=== PATIENT | female | born 1985 ===

== ENCOUNTER 2020-09-09 08:25 | Emergency (ER) | payer SELFPAY ==
[~2020-09-09] VITALS: Ht 152.4 cm; Wt 77.3 kg
[2020-09-09 08:33] VITALS: TEMP 98
[2020-09-09 09:03] LABS: BASO % 0.3 % (0.0-2.0); EOS # 0.2 (0.0-0.7); EOS % 2.2 % (0-4.0); GRAN # 5.6 (1.4-6.5); HEMATOCRIT 38.1 % (37.0-47.0); LYMPH # 1.4 (1.2-3.4); LYMPH % 17.7 % (20.0-51.0); MEAN CELL VOLUME 89 fl (80.0-100.0); MEAN CORPUSCULAR HEMOGLOBIN 30 pg (27.0-31.0); MEAN CORPUSCULAR HGB CONC 34 g/dl (33.0-37.0); MEAN PLATELET VOLUME 10.3 fl (7.4-10.4); MONO # 0.5 (0.1-0.6); MONO % 6.4 % (1.7-9.3); PLATELET COUNT 203 K/mm3 (130-400); RED BLOOD COUNT 4.29 M/mm3 (4.10-5.30); REDCELL DISTRIBUTION WIDTH-CV 12.1 % (11.5-14.5)
[2020-09-09 09:13] LABS: ALBUMIN 3.8 gm/dL (3.5-5.0); BILIRUBIN,TOTAL 0.5 mg/dL (0.0-1.0); CALCIUM 8.7 mg/dL (8.4-10.2); CREATININE, serum 0.78 (0.52-1.25); POTASSIUM 3.4 mmol/L (3.4-5.0)
[2020-09-09 09:19] LABS: COLLECTION METHOD CLEAN CATCH
[2020-09-09 09:25] LABS: PH 8 (5-8); SQUAMOUS EPITHELIAL 0-2 /hpf; URINE APPEARANCE Clear; URINE BACTERIA None Seen /hpf; URINE BILIRUBIN Negative (NEGATIVE); URINE BLOOD Negative (NEGATIVE); URINE COLOR Straw; URINE GLUCOSE Negative (NEGATIVE); URINE KETONE Negative (NEGATIVE); URINE LEUKOCYTE ESTERASE Negative (NEGATIVE); URINE NITRATE Negative (NEGATIVE); URINE PROTEIN(semi-quant) Negative (NEGATIVE); URINE RBC 0-2 /hpf; URINE UROBILINOGEN Negative (NEGATIVE)
[2020-09-09] MEDS ORDERED: PEPCID 20MG TAB20 MG PO (10:28)
[2020-09-09 11:07] VITALS: BP 134/86; PULSE 59
[2020-09-10] MEDS ORDERED: NORCO 325 MG-51 TAB PO (11:02)
[2020-09-10] MEDS ORDERED: DOXYCYCLINE HY100 MG PO (11:02)
== END 2020-09-09 11:10 | disposition home or self-care (01) ==
LOC: COL.ER 08:25
PROVIDERS: Emergency Medicine
DX: R10.13 Epigastric pain (principal); R19.5 Other fecal abnormalities; R11.2 Nausea with vomiting, unspecified; M79.10 Myalgia, unspecified site; Z32.02 Encounter for pregnancy test, result negative; Z20.822 Contact with and (suspected) exposure to COVID-19
CPT/HCPCS: J7030

== ENCOUNTER 2020-09-09 19:30 | Observation (INO) | payer SELFPAY ==
[~2020-09-09] VITALS: Ht 162.6 cm; Wt 77.3 kg
[~2020-09-09 19:30] MED LIST: PEPCID 20MG TAB20 MG PO
[2020-09-09 20:37] LABS: BASO % 0.3 % (0.0-2.0); EOS # 0.1 (0.0-0.7); EOS % 1.3 % (0-4.0); GRAN # 5.6 (1.4-6.5); GRAN % 72.2 % (42.2-75.2); HEMATOCRIT 37.4 % (37.0-47.0); HEMOGLOBIN 12.8 g/dl (12.5-16.0); LYMPH # 1.6 (1.2-3.4); LYMPH % 20.2 % (20.0-51.0); MEAN CELL VOLUME 89 fl (80.0-100.0); MEAN CORPUSCULAR HEMOGLOBIN 30 pg (27.0-31.0); MEAN CORPUSCULAR HGB CONC 34 g/dl (33.0-37.0); MEAN PLATELET VOLUME 10.5 fl (7.4-10.4); MONO # 0.4 (0.1-0.6); MONO % 5.7 % (1.7-9.3); PLATELET COUNT 215 K/mm3 (130-400); RED BLOOD COUNT 4.22 M/mm3 (4.10-5.30); REDCELL DISTRIBUTION WIDTH-CV 11.9 % (11.5-14.5)
[2020-09-09 20:52] LABS: ALBUMIN 3.9 gm/dL (3.5-5.0); BILIRUBIN,TOTAL 0.5 mg/dL (0.0-1.0); CALCIUM 8.8 mg/dL (8.4-10.2); CREATININE, serum 0.83 (0.52-1.25); POTASSIUM 3.7 mmol/L (3.4-5.0); TOTAL PROTEIN 7.2 gm/dL (6.4-8.2)
[2020-09-10] VITALS (11 sets, daily range): BP systolic 105–129; BP diastolic 61–78; PULSE 54–75; TEMP 97.3–98.2
--- NOTE | 2020-09-10 01:40 | NUR ---
PAtient up to room 349. Translater called to assist with orienting patient to room and completing the med rec. Patient expressed she was in some pain. Fluids started and dilaudid given. No other needs at this time. Call light in reach.
[2020-09-10] MEDS ORDERED: NORCO 325 MG-51 TAB PO (11:02)
[2020-09-10] MEDS ORDERED: DOXYCYCLINE HY100 MG PO (11:02)
--- NOTE | 2020-09-10 13:46 | NUR ---
SW met with patient to complete intake. Patient only speaks slovak. Nurse assisted with information obtained previously during assessment and assisted SW with information to obtain translation. Patient lives in [place] with children and 2 others. POC is friend Leonides [phone]. Patient does not currently utilize DME and is independent with ADL's. Patient does not currently have anyone appointed as DPOA-HC, and does not wish to complete documentation at this time. Patient is due to have surgery and DC today and plans to return to her home in [place] up on DC. SW will continue to follow. Plan: Home in [place]
--- NOTE | 2020-09-10 18:00 | NUR ---
Discharge instructions reviewed with patient, using routeman number for [place] to [place] translation. Verbalized understanding. Discharged ambulatory to auto/home with family at 1705.
== END 2020-09-10 17:05 | disposition home or self-care (01) ==
LOC: COL.ER 19:30 → SURG 09-10 00:05
PROVIDERS: Nurse Practitioner; ADMIT Surgery
DX: N73.9 Female pelvic inflammatory disease, unspecified (principal); N80.9 Endometriosis, unspecified; K21.9 Gastro-esophageal reflux disease without esophagitis; Z79.899 Other long term (current) drug therapy
CPT/HCPCS: G0378; J1100; J1170; J1885; J2405; J2543; J2704; J3010; J7030; Q9967

== ENCOUNTER 2021-04-10 09:26 | Emergency (ER) | payer SELFPAY ==
[~2021-04-10] VITALS: Ht 162.6 cm; Wt 75.0 kg
[~2021-04-10 09:26] MED LIST changes: +DOXYCYCLINE HY100 MG PO; +NORCO 325 MG-51 TAB PO
[2021-04-10 09:49] VITALS: TEMP 98
[2021-04-10 09:55] LABS: COLLECTION METHOD CLEAN CATCH
[2021-04-10 10:12] LABS: BASO % 0.3 % (0.0-2.0); EOS # 0.2 K/mm3 (0.0-0.7); GRAN # 6.9 K/mm3 (1.4-6.5); GRAN % 75.4 % (42.2-75.2); HEMOGLOBIN 12.6 g/dl (12.5-16.0); LYMPH # 1.6 K/mm3 (1.2-3.4); LYMPH % 17.2 % (20.0-51.0); MEAN CELL VOLUME 86 fl (80.0-100.0); MEAN CORPUSCULAR HEMOGLOBIN 30 pg (27-31); MEAN CORPUSCULAR HGB CONC 35 g/dl (33.0-37.0); MEAN PLATELET VOLUME 10.4 fl (7.4-10.4); MONO # 0.4 K/mm3 (0.1-0.6); MONO % 4.8 % (1.7-9.3); PLATELET COUNT 228 K/mm3 (130-400); RED BLOOD COUNT 4.15 M/mm3 (4.10-5.30); REDCELL DISTRIBUTION WIDTH-CV 12.8 % (11.5-14.5)
[2021-04-10 10:14] LABS: HEMATOCRIT 35.7 % (37.0-47.0)
[2021-04-10 10:26] LABS: ALBUMIN 3.5 gm/dL (3.5-5.0); BILIRUBIN,TOTAL 0.5 mg/dL (0.2-1.2); C-REACTIVE PROTEIN 1.53 mg/dL (0.00-0.50); CREATININE, serum 0.6 mg/dL (0.57-1.11); POTASSIUM 3.6 mmol/L (3.5-4.5)
[2021-04-10 10:34] LABS: MUCOUS Present (NOT PRESENT); PH 5 (5-8); URINE APPEARANCE Cloudy (CLEAR/HAZY); URINE BACTERIA None Seen /hpf (NONE SEEN); URINE BILIRUBIN Negative (NEGATIVE); URINE BLOOD Negative (NEGATIVE); URINE COLOR Yellow (YELLOW); URINE GLUCOSE Negative (NEGATIVE); URINE KETONE Negative (NEGATIVE); URINE LEUKOCYTE ESTERASE Negative (NEGATIVE); URINE NITRATE Negative (NEGATIVE); URINE PROTEIN(semi-quant) Negative (NEGATIVE); URINE RBC 0-2 /hpf (0-2); URINE UROBILINOGEN Negative (NEGATIVE)
[2021-04-10] MEDS ORDERED: PHENERGAN 25 TA25 MG PO (10:57)
[2021-04-10 12:30] VITALS: BP 105/69; PULSE 82
== END 2021-04-10 12:30 | disposition home or self-care (01) ==
LOC: COL.ER 09:26
PROVIDERS: Emergency Medicine
DX: O21.9 Vomiting of pregnancy, unspecified (principal); Z3A.12 12 weeks gestation of pregnancy
CPT/HCPCS: J2405; J2550; J7030

== ENCOUNTER 2021-10-25 06:56 | Inpatient (IN) | payer SELFPAY ==
[2021-10-25] VITALS (31 sets, daily range): BP systolic 96–134; BP diastolic 53–84; PULSE 69–87; TEMP 97.9–98.4
[~2021-10-25] VITALS: Ht 154.9 cm; Wt 87.3 kg
--- NOTE | 2021-10-25 06:55 | NUR ---
Pt arrived on unit ambulatory and with concern for SROM. Using a it quality analyst pt reports SROM 0600 with contractions starting after SROM. Pt denies any vaginal bleeding and reports normal movement. EFM and toco monitors started. Vital signs WNL. SVE by this RN / with positive amnio-trace. Roles on unit. FHR tracing reviewd. Orders for labor admission received. Plan of care reviewed with pt.
[~2021-10-25 06:56] MED LIST changes: +PHENERGAN 25 TA25 MG PO
[2021-10-25] MEDS ORDERED: PRENATAL (07:21)
--- NOTE | 2021-10-25 07:37 | NUR ---
0737- [facility] and TOCO off. Pt up to void and ambulate around room.
[2021-10-25 08:07] LABS: BASO # 0.1 K/mm3 (0.0-0.2); BASO % 0.5 % (0.0-2.0); EOS # 0.2 K/mm3 (0.0-0.7); EOS % 1.9 % (0.0-4.0); GRAN # 6.2 K/mm3 (1.4-6.5); GRAN % 63.5 % (42.2-75.2); HEMOGLOBIN 12.9 g/dl (12.5-16.0); LYMPH # 2.7 K/mm3 (1.2-3.4); LYMPH % 27.9 % (20.0-51.0); MEAN CELL VOLUME 92 fl (80.0-100.0); MEAN CORPUSCULAR HEMOGLOBIN 31 pg (27-31); MEAN CORPUSCULAR HGB CONC 34 g/dl (33.0-37.0); MONO # 0.5 K/mm3 (0.1-0.6); MONO % 5.5 % (1.7-9.3); PLATELET COUNT 211 K/mm3 (130-400); RED BLOOD COUNT 4.15 M/mm3 (4.10-5.30); REDCELL DISTRIBUTION WIDTH-CV 13.8 % (11.5-14.5)
--- NOTE | 2021-10-25 08:30 | NUR ---
0810- Pt requesting epidural. This RN at bedside. [facility] interpreting service used to explain consent forms, signed and witnessed.
--- NOTE | 2021-10-25 09:00 | NUR ---
0842- [employer] interpreting service used. Pt assisted to side of bed for epidural placement. MITCHEL Weston at bedside. FHR tracing 70-80s due to maternal position, O2 sat monitor on and tracing maternal HR. 0850- Single shot by QA ANALYST, see anesthesia record. 0854- Pt assisted to semi-fowlers with WR. EFM and TOCO adjusted.
--- NOTE | 2021-10-25 09:30 | NUR ---
0915- [facility] interpreting service at bedside. Pedroza placed without difficulty, SVE /-1. Pt repositioned to LL with RLS, EFM and TOCO adjusted. 0929- TOCO not tracing well, adjusted multiple time.
--- NOTE | 2021-10-25 10:45 | NUR ---
1042- SVE, complete/0 station. Pt instructed using [employer] interpreting services to push with UC. FHR noted down to the 70's lasting approx 2.5 seconds. Pt repositioned to , FHR returns to baseline.
--- NOTE | 2021-10-25 11:15 | NUR ---
1103- Dr Roles at bedside. Pt assisted to semi-fowlers, instructed to push using [employer] interpreting service. Pt not pushing well despite coaching. Epidural off per MD. 1110- Pt repositioned to Meenakshi position. This RN and Dr Roles to nurses station.
--- NOTE | 2021-10-25 11:45 | NUR ---
1127- FHR off monitor, this RN to bedside. FHR intermittently tracing, noted in the 70's, Pt repositioned to . Dr Roles at bedside to evaluate. O2 sat monitor on and tracing maternal HR. 1130-FHR noted back to baseline, FHR variables x2 then resolved.
--- NOTE | 2021-10-25 12:20 | NUR ---
1205- Dr Cordoba and this RN at bedside, [facility] interpreting service at bedside. Pt coached and assisted with pushing. 1211- FHR deceleration noted in the 80's, lasting approx 4mins. Pt and room prepped for delivery, Pt counciled on vacuum assist if needed. Leonid, Angie, and Stevenson, RNs at bedside. Pt continues pushing with UCs. 1220- of viable male . Cord clamped and cut, infant to mother's abd, tended to by Leonid, Nursery RN. 1223- Spontaneous delivery of placenta, Pitocin started at 333ml/hr. Fundus massaged to firm by . Pericare completed. Clean chux under Pt, ice pack to Perineum. Pt tolerated well. [id number] with mom.
[2021-10-26 00:30] VITALS: BP 120/68; PULSE 75; TEMP 98.6
[2021-10-26 04:30] VITALS: BP 118/67; PULSE 80; TEMP 98.7
[2021-10-26] MEDS ORDERED: IBU800 M1 PO (08:31)
[2021-10-26 09:15] VITALS: BP 105/79; PULSE 78; TEMP 97.8
--- NOTE | 2021-10-26 09:17 | NUR ---
Initial visit attempt; Family resting, Resin Coater left card congratulating parents for the of their son and information regarding the availability of [facility] at [facility].
[2021-10-26 16:25] VITALS: BP 104/75; PULSE 75; TEMP 97.3
--- NOTE | 2021-10-26 19:00 | NUR ---
1900 PT READY TO LEAVE. DISCHARGE INSTRUCTIONS GIVEN THRU [facility] LOOM CHANGER. PT DECIDING BABY NAME NEEDS TO BE SPELLED DIFFERENT. CERTIFICATE RETYPED. 2015 HOME PER AMB ACC BY , FRIEND AND BABY
== END 2021-10-26 20:15 | disposition home or self-care (01) | DRG 807 ==
LOC: LDR 06:56 → LDRO 06:56 → LDR 07:29 → OB 07:29
PROVIDERS: ADMIT Obstetrics & Gynecology
PROC: 10E0XZZ Delivery of Products of Conception, External Approach (ICD-10-PCS; principal; 2021-10-25)
DX: O48.0 Post-term pregnancy (principal); Z37.0 Single live birth; Z3A.40 40 weeks gestation of pregnancy; O99.214 Obesity complicating childbirth; E66.9 Obesity, unspecified
CPT/HCPCS: J2590; J2795; J7120